=== PATIENT | male | born 1980 | race American Indian/Alaskan Native ===

== ENCOUNTER 2017-10-28 15:07 | Emergency (ER) | payer OTHER ==
[2017-10-28 15:14] VITALS: BP 142/85
[2017-10-28] MEDS ORDERED: ULTRAM PO ONE (16:21)
[2017-10-28] MEDS ORDERED: MOTRIN PO ONE (16:21)
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
== END 2017-10-28 19:55 ==
LOC: ED 15:07
DX: S00.11XA Contusion of right eyelid and periocular area, initial encounter (principal); F17.200 Nicotine dependence, unspecified, uncomplicated; F12.10 Cannabis abuse, uncomplicated; R40.4 Transient alteration of awareness; Y04.2XXA Assault by strike against or bumped into by another person, initial encounter; Y93.89 Activity, other specified; Y99.8 Other external cause status; Y92.009 Unspecified place in unspecified non-institutional (private) residence as the place of occurrence of the external cause
CPT/HCPCS: 70450; 70486; 72125